=== PATIENT | female | born 1970 | race Caucasian/White ===

== ENCOUNTER 2019-05-05 12:46 | Emergency (ER) | payer BC, OTHER ==
[2019-05-05 13:26] VITALS: BP 103/64
--- NOTE | 2019-05-05 13:58 | UC ---
Minor Trauma HPI - HPI Summary HPI Summary: Pt is presents with c/o left low back and lower extremity pain after tripping over her dog this morning at 11 am. Pt c/o left lower back, knee, calf, and foot pain. States that she thinks she got and "instant katie horse" after her fall. Pt took 400 mg Ibuprofen prior to arrival and states that pain in her leg makes her "feel nauseous". - History of Current Complaint Chief Complaint: UCLowerExtremity Stated Complaint: S/P FALL LEFT LEG/BACK Time Seen by Provider: 05/05/19 13:17 Hx Obtained From: Patient ?: No Onset/Duration: Sudden Onset, Still Present Onset Of Pain: Immediate Severity Initially: Severe Severity Currently: Severe Pain Intensity: 9 Mechanism Of Injury: Fall From A Standing Position Aggravating Factor(s): Ambulation, Movement, Weight Bearing Alleviating Factor(s): Rest Associated Signs And Symptoms: Positive: Other: - abrasion to left knee - Risk Factors Penetrating Injury Risk Factors: Negative Compartment Syndrome Risk Factors: Pain - abrasion to left knee - Allergies/Home Medications Allergies/Adverse Reactions: Allergies Allergy/AdvReac Type Severity Reaction Status Date / Time Sulfa (Sulfonamide Allergy Unknown RASH, Verified 05/05/19 13:14 Antibiotics) NIGHTMARES Home Medications: Home Medications DULoxetine DR CAP* [Cymbalta CAP*] 60 mg PO BID 05/05/19 [History Confirmed ] Divalproex DR TAB(*) [Depakote DR(*)] 500 mg PO BID 05/05/19 [History Confirmed 05/05/19] Ibuprofen TAB* [Advil TAB*] 600 mg PO Q6H PRN 05/05/19 [History Confirmed ] Medication For Stress,?Name 05/05/19 [History] PMH/Surg Hx/FS Hx/Imm Hx Previously Healthy: Yes - Surgical History Surgical History: Yes Surgery Procedure, Year, and Place: 1995. CARPAL TUNNLE REPAIR AND TRIGGER FINGER RELEASE RIGHT HAND 1217. LEFT CARPAL TUNNEL AND TRIGGER FINGER RELEASE- 12/2018 - Family History Known Family History: Positive: Cardiac Disease - Social History Occupation: Unemployed Lives: With Family Alcohol Use: Rare Substance Use Type: None Smoking Status (MU): Heavy Every Day Tobacco Smoker Type: Cigarettes Amount Used/How Often: 1.5 PPD Have You Smoked in the Last Year: Yes Household Exposure Type: Cigarettes Review of Systems All Other Systems Reviewed And Are Negative: Yes Constitutional: Positive: Negative Skin: Positive: Other - abrasion left anterior knee Eyes: Positive: Negative ENT: Positive: Negative Respiratory: Positive: Negative Cardiovascular: Positive: Negative Gastrointestinal: Positive: Negative Genitourinary: Positive: Negative Motor: Positive: Decreased ROM - lefty lower extremity from low back to distal foot Neurovascular: Positive: Negative Musculoskeletal: Positive: Arthralgia, Decreased ROM, Myalgia Neurological: Positive: Negative Psychological: Positive: Negative Is Patient Immunocompromised?: No Physical Exam Triage Information Reviewed: Yes Appearance: Pain Distress, Obese Vital Signs: Initial Vital Signs Temp 97.3 F 05/05/19 13:18 Pulse 79 05/05/19 13:18 Resp 17 05/05/19 13:18 BP 103/64 05/05/19 13:18 Pulse Ox 96 05/05/19 13:18 Vital Signs Reviewed: Yes Eye Exam: Normal ENT Exam: Normal Dental Exam: Normal Neck exam: Normal Respiratory: Positive: No respiratory distress Musculoskeletal: Positive: ROM Limited @ - left lower extremity Neurological Exam: Normal Psychological Exam: Normal Skin Exam: Other - small abrasion to left anterior knee Diagnostics - Radiology No standard instances Radiology Interpretation Completed By: Radiologist - IMPRESSION: NO RADIOGRAPHIC EVIDENCE FOR HIP FRACTURE. X-RAYS MAY BE NEGATIVE WITH NONDISPLACED HIP FRACTURE, IF THERE IS PERSISTENT CLINICAL CONCERN, RECOMMEND CONSIDERATION OF MRI. IN THE SETTING OF CONTRAINDICATION TO MRI OR LIMITATION IN EMERGENT ACCESS TO MRI, CT WOULD BE SUGGESTED. IMPRESSION: NO ACUTE OSSEOUS INJURY. IF SYMPTOMS PERSIST, RECOMMEND REPEAT IMAGING. Minor Trauma Course/Dx - Course Course Of Treatment: Pt refused bandage for abrasion to left knee. - Differential Dx/Diagnosis Differential Diagnosis/HQI/PQRI: Contusion(s), Sprain, Strain Provider Diagnosis: Lower extremity injury, Low back pain Discharge - Sign-Out/Discharge Documenting (check all that apply): Patient Departure All imaging exams completed and their final reports reviewed: Yes - Discharge Plan Condition: Stable Disposition: HOME Patient Education Materials: Acute Low Back Pain (ED), Knee Pain (ED), Ice Pack Application (ED), Safe Use of NSAIDs (ED), Lower Back Exercises (ED), Hip Contusion (ED) Referrals: Honey Alanis NP [Primary Care Provider] - As Soon As Possible Additional Instructions: Please follow up with your PCP as soon as possible for follow up care. If your symptoms do not imporve or they worsen, please go directly to the closest emergency room. - Billing Disposition and Condition Condition: STABLE Disposition: Home
== END 2019-05-05 14:39 | disposition home or self-care (01) ==
LOC: UCCORT 12:46
DX: S80.212A Abrasion, left knee, initial encounter (principal); W01.0XXA Fall on same level from slipping, tripping and stumbling without subsequent striking against object, initial encounter; Y92.9 Unspecified place or not applicable; M54.5 Low back pain; F17.210 Nicotine dependence, cigarettes, uncomplicated
CPT/HCPCS: 99201; G0463